=== PATIENT | female | born 1945 | race Caucasian/White ===

== ENCOUNTER 2019-03-07 03:58 | Inpatient (IN) | payer SELFPAY ==
[~2019-03-07] VITALS: Ht 172.7 cm; Wt 76.4 kg
[2019-03-07] MEDS ORDERED: ASPIRIN 81 MG TAB.CHEW ONE (04:32)
[2019-03-07 04:35] LABS: BASO # 0.1 x10^3/uL (0.0-0.2); BASO % 2 % (0-3); EOS # 0.2 x10^3/uL (0.0-0.7); EOS % 3 % (0-3); HEMATOCRIT 34.5 % (36.0-47.0); HEMOGLOBIN 11.6 g/dL (12.0-15.5); LYMPH # 0.5 x10^3/uL (1.0-4.8); LYMPH % 10 % (24-48); MEAN CORPUSCULAR HEMOGLOBIN 33 pg (25-35); MEAN CORPUSCULAR HGB CONC 34 g/dL (31-37); MEAN CORPUSCULAR VOLUME 98 fL (79-100); MONO # 0.7 x10^3/uL (0.0-1.1); MONO % 13 % (0-9); NEUT # 3.9 x10^3uL (1.8-7.7); NEUT % 72 % (31-73); PLATELET COUNT 349 x10^3/uL (140-400); RED BLOOD COUNT 3.52 x10^6/uL (3.50-5.40); RED CELL DISTRIBUTION WIDTH 14.3 % (11.5-14.5); WHITE BLOOD COUNT 5.5 x10^3/uL (4.0-11.0)
--- NOTE | 2019-03-07 04:35 | PHYS DOC ---
Past History Past Medical History: A-Fib, Cancer, COPD, High Cholesterol, Hypothyroid, Pneumonia, Other Additional Past Medical Histor: lung cancer Past Surgical History: No Surgical History Alcohol Use: None Drug Use: None Adult General Chief Complaint Chief Complaint: CHEST PAIN HPI HPI 73-year-old female presents with chest pain. She has had chest pain for the last 4 hours. She describes it as a central heaviness that is moderate in intensity. She was lying down when it started. Denies shortness of breath or diaphoresis. She came in because it has persisted and not gone away. The patient has a history of atrial fibrillation, small cell lung cancer, and recent diagnosis of pneumonia. She started on Levaquin yesterday. She has not had fever or chills at home. She has no official cardiac disease history. She has not had bypass or any stents. She is on anticoagulant for her A. fib. Review of Systems Review of Systems Constitutional: Denies fever or chills [] Eyes: Denies change in visual acuity, redness, or eye pain [] HENT: Denies nasal congestion or sore throat [] Respiratory: Denies cough or shortness of breath [] Cardiovascular: No additional information not addressed in HPI [] GI: Denies abdominal pain, nausea, vomiting, bloody stools or diarrhea [] : Denies dysuria or hematuria [] Musculoskeletal: Denies back pain or joint pain [] Integument: Denies rash or skin lesions [] Neurologic: Denies headache, focal weakness or sensory changes [] Endocrine: Denies polyuria or polydipsia [] All other systems were reviewed and found to be within normal limits, except as documented in this note. Current Medications Current Medications Current Medications Medications (Trade) Dose Ordered Sig/Roya Start Time Stop Time Status Last Admin Dose Admin Aspirin (Children'S Aspirin) 324 mg 1X ONCE 03/07/19 04:30 03/07/19 04:31 UNV Allergies Allergies Allergies Coded Allergies Type Severity Reaction Last Updated Verified cefdinir Allergy Severe Swelling 03/07/19 Yes clarithromycin Allergy Severe Swelling 03/07/19 Yes doxycycline Allergy Severe Swelling 03/07/19 Yes homatropine Allergy Severe Swelling 03/07/19 Yes hydrocodone Allergy Severe Swelling 03/07/19 Yes chlorpheniramine Allergy Unknown 03/07/19 Yes cyclobenzaprine Allergy Unknown 03/07/19 Yes Physical Exam Physical Exam Constitutional: Well developed, well nourished, no acute distress, non-toxic appearance. [] HENT: Normocephalic, atraumatic, bilateral external ears normal, oropharynx moist, no oral exudates, nose normal. [] Eyes: PERRLA, EOMI, conjunctiva normal, no discharge. [] Neck: Normal range of motion, no tenderness, supple, no stridor. [] Cardiovascular:Heart rate 109, irregular rhythm, no murmur [] Lungs & Thorax: Bilateral breath sounds diminished to auscultation [] Abdomen: Bowel sounds normal, soft, no tenderness, no masses, no pulsatile masses. [] Skin: Warm, dry, no erythema, no rash. [] Back: No tenderness, no CVA tenderness. [] Extremities: No tenderness, no cyanosis, no clubbing, ROM intact, no edema. [] Neurologic: Alert and oriented X 3, normal motor function, normal sensory function, no focal deficits noted. [] Psychologic: Affect normal, judgement normal, mood normal. [] Current Patient Data Vital Signs Vital Signs Date Time Temp Pulse Resp B/P (MAP) Pulse Ox O2 Delivery O2 Flow Rate FiO2 03/07/19 03:59 99 20 95 Room Air EKG EKG Irregular rhythm, rate 109, A. fib, normal axis, no ST elevations or depressions.[] Radiology/Procedures Radiology/Procedures [] Impressions: Exam: Chest one view INDICATION: Chest pain TECHNIQUE: Frontal view of the chest Comparisons: None FINDINGS: The cardiomediastinal silhouette and pulmonary vessels are within normal limits. Strandy opacities in lung bases bilaterally. No pleural effusion. IMPRESSION: Bibasilar atelectasis. Electronically signed by: June Mayo MD (03/07/2019 4:53 AM) [facility] DICTATED AND SIGNED BY: JUNE MAYO MD DATE: 03/07/19 0455 CC: EMERALD FAUSTIN DO; JACKIE SOSA ~ Course & Med Decision Making Course & Med Decision Making Pertinent Labs and Imaging studies reviewed. (See chart for details) The patient's chest x-ray shows bibasilar atelectasis, but no focal consolidation. Her labs are unremarkable. Her troponin is negative. It has only been 4 hours since her pain began so this troponin does not rule out cardiac cause of her pain. We have given her 324 of aspirin and a liter of normal saline. The patient's heart sore is a 5. I will admit her to the hospital for further observation and trending of her troponins. I spoke with Dr. Galeano and he has accepted the patient for admission. [] Dragon Disclaimer Dragon Disclaimer This electronic medical record was generated, in whole or in part, using a voice recognition dictation system. The HEART Score for CP Pts HEART Score for Chest Pain: HEART Score for Chest Pain Response (Comments) Value History Moderately Suspicious 1 ECG Nonspecific Repolarizatio 1 Age > 65 2 Risk Factors 1 or 2 Risk Factors 1 Troponin < Normal Limit 0 Total 5 Risk Factors: Risk Factors: DM, Current or recent (<one month) smoker, HTN, HLP, family history of CAD, obesity. Risk Scores: Score 0 - 3: 2.5% MACE over next 6 weeks - Discharge Home Score 4 - 6: 20.3% MACE over next 6 weeks - Admit for Clinical Observation Score 7 - 10: 72.7% MACE over next 6 weeks - Early Invasive Strategies Departure Departure: Impression: Primary Impression: Chest pain Disposition: ADMITTED INPATIENT Admitting Physician: Diana Galeano Condition: STABLE Referrals: JACKIE SOSA (PCP) Problem Qualifiers Primary Impression: Chest pain Chest pain type: precordial pain Qualified Codes: R07.2 - Precordial pain EMERALD FAUSTIN DO Mar 07, 2019 04:35
--- NOTE | 2019-03-07 04:56 | RAD ---
Exam: Chest one view INDICATION: Chest pain TECHNIQUE: Frontal view of the chest Comparisons: None FINDINGS: The cardiomediastinal silhouette and pulmonary vessels are within normal limits. Strandy opacities in lung bases bilaterally. No pleural effusion. IMPRESSION: Bibasilar atelectasis. Electronically signed by: June Masters MD (03/07/2019 4:53 AM) [facility]
[2019-03-07] MEDS ORDERED: IV NORMAL SALINE 1,000ML 1,000 ML IV ONE (05:00)
[2019-03-07] MEDS ORDERED: ASPIRIN 81 MG TAB.CHEW PO ONE (05:00)
[2019-03-07 05:11] LABS: GFR 54.3; POTASSIUM 3.1 mmol/L (3.5-5.1)
[2019-03-07] MEDS ORDERED: ONDANSETRON PF 4 MG/2 ML VIAL. IV PRN (05:15)
[2019-03-07 05:17] LABS: ALBUMIN 2.6 g/dL (3.4-5.0); ALBUMIN/GLOBULIN RATIO 0.6 (1.0-1.7); TOTAL BILIRUBIN 0.4 mg/dL (0.2-1.0); TOTAL PROTEIN 6.7 g/dL (6.4-8.2)
[2019-03-07 06:11] VITALS: BP 110/71
[2019-03-07] MEDS ORDERED: CYAN500T17 PO (06:36)
[2019-03-07] MEDS ORDERED: LEVO50TA5 PO (06:36)
[2019-03-07] MEDS ORDERED: MULT400T5 PO (06:36)
[2019-03-07] MEDS ORDERED: LISI-338 PO (06:36)
[2019-03-07] MEDS ORDERED: APIX5TAB3 PO (06:36)
[2019-03-07] MEDS ORDERED: METO-247 PO (06:36)
[2019-03-07] MEDS ORDERED: ROSU20TA28 PO (06:36)
[2019-03-07] MEDS ORDERED: ASCO100T4 PO (06:36)
[2019-03-07] MEDS ORDERED: LORA10TA3 PO (06:36)
[2019-03-07] MEDS ORDERED: ALBU2.5V8 IH (06:36)
[2019-03-07] MEDS ORDERED: POTASSIUM CHLORIDE 20 MEQ TABLET.ER. PO ONE ×2 (07:15→13:00)
[2019-03-07] MEDS ORDERED: METOPROLOL SUCC 24HR ER 50 MG TAB.ER.24H. PO SCH (09:00)
[2019-03-07] MEDS ORDERED: APIXABAN 5 MG TABLET. PO SCH (09:00)
[2019-03-07 09:07] LABS: BILIRUBIN,URINE NEG (NEG); CLARITY,URINE CLEAR; COLOR,URINE YELLOW; GLUCOSE,URINE NEG (NEG)
[2019-03-07 09:08] LABS: BACTERIA,URINE 0 /HPF (0-FEW); NITRITE,URINE NEG (NEG); RBC,URINE 0 /HPF (0-2); UROBILINOGEN,URINE 0.2 mg/dL (0.2 mg/dL)
[2019-03-07 11:20] VITALS: BP 94/61
[2019-03-07 12:31] LABS: CALCIUM 8.2 mg/dL (8.5-10.1); CREATININE 0.9 mg/dL (0.6-1.0); GFR 61.4; POTASSIUM 3.3 mmol/L (3.5-5.1)
[2019-03-07] MEDS ORDERED: ALBUTEROL SULFATE 2.5 MG/3 ML NEBU. IH PRN (12:45)
--- NOTE | 2019-03-07 13:55 | SSS ---
ADMIT DATE: 03/07/2019 HISTORY OF PRESENT ILLNESS: The patient is a 73-year-old female patient who came to the emergency room complaining of chest pressure that she described as central heaviness and it is moderate in intensity. She was lying down when that started. Denied any shortness of breath or diaphoresis. Denied any nausea or vomiting. Denied any radiation to her left arm, left shoulder or left-sided neck and she came to the emergency room because her pain has persisted and is not going away. The patient is known to have a small cell lung cancer and had a PET scan done on and she was contacted and was told that she has pneumonia and that she was seen by her primary care physician and was started on Levaquin last Friday, she took only one dose of her Levaquin yesterday. The patient denied any chills, rigors or fever. She was extensively evaluated in the emergency room and her EKG showed that she was in atrial fibrillation with a heart rate of 109 beats per minute, irregularly irregular. No ST segment elevation. Her chest x-ray showed that the cardiomediastinal silhouette and pulmonary vessels are within normal limits. She does have strandy opacities in the lung bases bilaterally, no pleural effusion. Her lab work showed a normal white cell count and her chemistry did show hypokalemia and her first set of cardiac enzymes showed troponin to be less than 0.017. The patient was admitted to do 2 more sets of cardiac enzyme. PAST MEDICAL HISTORY: Significant for hypothyroidism, chronic obstructive pulmonary disease, osteoarthritis, osteoporosis. She is known to have atrial fibrillation, small cell cancer diagnosed in March 2018, treated with chemotherapy and 2-3 immunotherapy according to her. PAST SURGICAL HISTORY: Significant for cyst removal from left breast as well as colonoscopy. ALLERGIES: She is allergic to CEFDINIR, CHLORPHENIRAMINE, CLARITHROMYCIN, CYCLOBENZAPRINE, DOXYCYCLINE, GARLIC, HOMATROPINE, HONEY, HYDROCODONE and STRAWBERRY. MEDICATIONS: She is currently on following medications: She is on loratadine 10 mg once a day, albuterol sulfate 2 puffs every 6 hours, apixaban 5 mg twice a day, Crestor 20 mg daily, metoprolol succinate 100 mg daily, lisinopril 5 mg daily, levothyroxine sodium 50 mcg once a day, cyanocobalamin 1000 mcg oral daily, ascorbic acid 1000 mg daily, multivitamin with folic acid 1 tablet once a day. FAMILY HISTORY: She has 5 brothers and 2 sisters. Her older brother of brain aneurysm. Two younger brothers, one of them because of cancer and the other an overdose. Her father at the age of 26 and mother at the age of 93. SOCIAL HISTORY: She is , lives alone. She has 4 sons and 2 daughters. She quit smoking in March 2018. She used to smoke 1 to 1-1/2 pack a day for 30-40 years. She does not drink alcohol or use any recreational drugs. 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 REVIEW OF SYSTEMS: The patient denied any blurring of vision, cataract, glaucoma or macular degeneration. Denied any earache, tinnitus or sensorineural deafness. Denied any nosebleeds, stuffy nose or postnasal drip. Denied any sore throat, sore tongue, toothache, hoarseness of voice or difficulty swallowing. Denied any nausea, vomiting, diarrhea or constipation. Denied any hematemesis, melena, hematochezia. Denied any dysuria, frequency or hematuria. She did complain of some chest pressure, but denied any shortness of breath, orthopnea or paroxysmal nocturnal dyspnea. Denied any cough, phlegm or hemoptysis. Denied any dizziness, lightheadedness, or vertigo. PHYSICAL EXAMINATION: GENERAL: On arrival to the emergency room, she looked well and was in no apparent respiratory distress. She was pale, but no jaundice or cyanosis. No lymphadenopathy, no thyromegaly. No jugular venous distention. No lower limb edema. VITAL SIGNS: Her heart rate was 87, blood pressure was 110/54, temperature was 98.1, respiratory rate was 18, and oxygen saturation was 92% on room air. HEAD, EYES, EARS, NOSE AND THROAT: Showed normocephalic, atraumatic. NECK: Supple. HEART: Showed normal first and second heart sounds. No gallop, rub or murmur. CHEST: Clear to auscultation. No crepitation or rhonchi. ABDOMEN: Distended, soft, nontender. NEUROLOGIC: She was awake, alert, responding appropriately. All cranial nerves intact. EXTREMITIES: She moves extremities without difficulty. She ambulates without assistance or assistive devices. LABORATORY DATA: On admission showed a serum sodium 135, potassium 3.1, chloride 97, bicarbonate 35, anion gap of 3, BUN 4, creatinine 1, estimated GFR was 54 mL per minute. Her glucose was 100, calcium was 8. Total bilirubin, AST, ALT, alkaline phosphatase were normal. Total protein was 6.7, albumin 2.6. White cell count was 5500, hemoglobin 11.6, hematocrit 34.5, MCV 98 and platelet count of 349,000. Urinalysis was essentially unremarkable. ASSESSMENT AND PLAN: The patient was admitted and has 2 more sets of cardiac enzyme and all her cardiac enzymes showed troponin to be less than 0.07. It transpired that she has a stress test done only 2 months ago and was negative. Her potassium is low at 3.1, we will give her 80 mEq of potassium chloride and I recommended the patient should be on potassium and the patient stated that she has a prescription for potassium chloride at home. She was discharged home to continue on her albuterol sulfate 2 puffs every 6 hours, apixaban 5 mg twice a day, ascorbic acid 1000 mg once a day, cyanocobalamin 1000 mcg once a day, levothyroxine sodium 50 mcg once a day, lisinopril 5 mg once a day, loratadine 10 mg once a day, metoprolol succinate 100 mg once a day, multivitamin 1 tablet once a day, Crestor 20 mg at bedtime. FINAL DISCHARGE DIAGNOSES: Chest pain, atypical, acute myocardial infarction was ruled out. The patient is known to have hypertension, hyperlipidemia, hypothyroidism, atrial fibrillation, rate controlled, well anticoagulated. LYNNE STALLINGS MD DR: NUHA/marina JOB#: [id number] / [id number]
[2019-03-08] MEDS ORDERED: LEVOTHYROXINE 50 MCG TABLET PO SCH (06:00)
[2019-03-08] MEDS ORDERED: CYANOCOBALAMIN (VITAMIN B-12) 1,000 MCG TABLET. PO SCH (09:00)
[2019-03-08] MEDS ORDERED: ATORVASTATIN CALCIUM 20 MG TABLET PO SCH (09:00)
[2019-03-08] MEDS ORDERED: LISINOPRIL 5 MG TABLET. PO SCH (09:00)
[2019-03-08] MEDS ORDERED: MULTIVITAMIN with MINERAL TABLET. PO SCH (09:00)
[2019-03-08] MEDS ORDERED: ASCORBIC ACID 500 MG TABLET PO SCH (09:00)
[2019-03-08] MEDS ORDERED: CETIRIZINE HCL 10 MG TABLET PO SCH (09:00)
--- NOTE | 2019-03-09 06:05 | EKG ---
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
== END 2019-03-07 13:01 | disposition home or self-care (01) | DRG 313 ==
LOC: ER 03:58 → 1 SOUTH 05:36
PROVIDERS: ADMIT Internal Medicine; ATTEND Internal Medicine
DX: R07.89 Other chest pain (principal); C34.90 Malignant neoplasm of unspecified part of unspecified bronchus or lung; J98.11 Atelectasis; E03.9 Hypothyroidism, unspecified; E78.00 Pure hypercholesterolemia, unspecified; E78.5 Hyperlipidemia, unspecified; E87.6 Hypokalemia; I10 Essential (primary) hypertension; I48.91 Unspecified atrial fibrillation; M81.0 Age-related osteoporosis without current pathological fracture; Z79.01 Long term (current) use of anticoagulants; Z79.890 Hormone replacement therapy; Z79.899 Other long term (current) drug therapy; Z85.118 Personal history of other malignant neoplasm of bronchus and lung; Z87.891 Personal history of nicotine dependence; Z92.21 Personal history of antineoplastic chemotherapy; M19.90 Unspecified osteoarthritis, unspecified site
CPT/HCPCS: 36415; 71045; 80048; 80053; 81001; 84484; 85025; 87086; 93005; 96360; 99285-25; J7030